=== PATIENT | male | born 1975 | race Caucasian/White ===

== ENCOUNTER 2016-06-20 07:12 | Inpatient (IN) | payer MEDICARE, OTHER ==
[2016-06-12 11:03] LABS: BASOPHILS 0.2 %; BASOPHILS ABSOLUTE 0.01 10/3/uL (0.0-0.16); EOSINOPHILS 3.2 %; EOSINOPHILS ABSOLUTE 0.18 10/3/uL (0.0-0.53); HEMATOCRIT 40.8 % (40.0-51.0); HEMOGLOBIN 14.2 g/dL (13.6-17.8); LYMPHOCYTES 31.7 %; LYMPHOCYTES ABSOLUTE 1.79 10/3/uL (0.67-4.30); MEAN CORPUS HGB CONC 34.8 g/dL (32.0-36.0); MEAN CORPUSCULAR HEMOGLOB 30.1 pg (26.0-34.0); MEAN CORPUSCULAR VOLUME 86.6 fL (80-100); MEAN PLATELET VOLUME 10.7 fL (9.2-13.0); MONOCYTES 12.2 %; MONOCYTES ABSOLUTE 0.69 10/3/uL (0.21-1.20); NEUTROPHILS 52.7 %; NEUTROPHILS ABSOLUTE 2.97 10/3/uL (2.02-8.40); PLATELET COUNT 212 10/3/uL (150-400); RED CELL COUNT 4.71 10/6/uL (4.7-6.1); WHITE BLOOD CELLS 5.6 10/3/uL (4.5-10.5)
[2016-06-12 11:04] LABS: MANUAL DIFF NO %
[2016-06-12 11:15] LABS: INTERNATIONAL NORMAL RATI 1.2 UNITS (-)
[2016-06-12 11:17] LABS: % IRON SAT 30 % (20-50); A/G RATIO 1.1 (0.7-1.9); ALBUMIN 3.7 G/DL (3.5-5.0); ALKALINE PHOSPHATASE 98 U/L (45-117); CALCIUM, SERUM 8.5 MG/DL (8.5-10.4); CHLORIDE, SERUM 106 MMOL/L (96-112); CO2 (CARBON DIOXIDE) 23 MMOL/L (24-34); CREATININE 1.25 MG/DL (0.70-1.30); GFR AFRICAN AMERICAN 82 ML/MIN (>=60); GFR NON AFRICAN AMERICAN 71 ML/MIN (>=60); GLOBULIN 3.3 G/DL (2.5-4.1); GLUCOSE, SERUM 120 MG/DL (60-99); IRON BINDING CAPACITY 308 MCG/DL (250-450); IRON, SERUM 93 MCG/DL (35-150); POTASSIUM, SERUM 3.4 MMOL/L (3.5-5.3); SGOT(AST) 17 U/L (5-40); SGPT(ALT) 21 U/L (5-65); SODIUM, SERUM 140 MMOL/L (135-148); TOTAL BILIRUBIN 0.5 MG/DL (0-1.2)
[2016-06-12 11:18] LABS: BUN (BLOOD UREA NITROGEN) 10 MG/DL (6-23)
[2016-06-12 11:32] LABS: ASCORBIC ACID (UR NOT ORDER) NEG (NEG); BILIRUBIN, URINE NEGATIVE (NEG); KETONE, URINE NEGATIVE (NEG); LEUKOCYTE ESTERASE(NOT OR NEG (NEG); WBC (NOT ORDERED) (RFLEX) 1 (0-5)
--- NOTE | ~2016-06-20 | OP ---
Record Of Operation [facility] [address] [place]. [address] NAME: MORGAN SMART : 73 STATUS : ADM IN PAT#: [id number] AGE: 41 ADM/REG DATE : 06/20/16 MR#: [id number] REPORT SERV DATE: 06/29/16 DICTATED BY: MORGAN LOPEZ DATE: 06/28/16 REPORT STATUS : Draft TRANSCRIBED BY: MODL DATE: 06/28/16 DATE OF PROCEDURE: 06/28/2016 PREOPERATIVE DIAGNOSES: 1. Acute mitral valve insufficiency, status post recent repair. 2. Flail anterior leaflet mitral valve. 3. Pulmonary hypertension. 4. Status post recent aortic root replacement (Bentall procedure) and mitral valve repair. 5. History of cerebral palsy. 6. Seizure disorder. 7. Obesity. 8. Hyperlipidemia. POSTOPERATIVE DIAGNOSES: 1. Acute mitral valve insufficiency, status post recent repair. 2. Flail anterior leaflet mitral valve. 3. Pulmonary hypertension. 4. Status post recent aortic root replacement (Bentall procedure) and mitral valve repair. 5. History of cerebral palsy. 6. Seizure disorder. 7. Obesity. 8. Hyperlipidemia. PROCEDURES PERFORMED: 1. Urgent mitral valve replacement using 31-mm pericardial valve with chordal-sparing technique. 2. Transesophageal echocardiography. SURGEON: Morgan Lopez M.D. ASSET COORDINATOR: Trevor Ratliff and Maribell Valladares. ANESTHESIA: General, Dr. Mckeon. COATING AND BAKING OPERATOR: Sai Charles M.D., [facility], [facility]. INDICATIONS: This is a 41-year-old gentleman with developmental delay. He has a seizure disorder and cerebral palsy. Has a known history of bicuspid aortic valve and dilated ascending aorta, and had been followed by Dr. Leach for these problems. He has developed worsening chest discomfort and dyspnea with exertion. Echocardiography demonstrated worsening mitral valve insufficiency along with aortic root insufficiency and stenosis. He underwent cardiac catheterization, and on 06/20/2016, underwent repair of the ascending aortic aneurysm and replacement of the aortic valve using a Bentall procedure with a pericardial valve prosthesis and Dacron graft. In addition, at the same setting, the mitral valve was repaired. This was a redundant mitral valve with ruptured A2 chord and we performed chordal transfer from the P2 primary chord of the leaflet onto the A2 cusp. At Record Of Operation [facility] [address] [place]. [address] NAME: MORGAN SMART : 73 STATUS : ADM IN PAT#: [id number] AGE: 41 ADM/REG DATE : 06/20/16 MR#: [id number] REPORT SERV DATE: 06/29/16 DICTATED BY: MORGAN LOPEZ DATE: 06/28/16 REPORT STATUS : Draft TRANSCRIBED BY: MODL DATE: 06/28/16 the conclusion of that the operation, there was no mitral valve insufficiency, although the mitral valve was redundant. Overall, the patient did relatively well postoperatively and was being readied for discharge. Routine postoperative echocardiography was performed yesterday and this demonstrated significant eccentric jet of mitral insufficiency and possible disruption of the repair of the mitral valve. The patient underwent a transesophageal echocardiogram this morning, which confirmed that the anterior leaflet of the mitral valve was now flail and there was severe eccentric jet of MR. Ventricular function was preserved. Aortic valve prosthesis appeared to be functioning normally. I talked with the family about possible reoperative repair or replacement of the mitral valve. I felt that replacement was most likely and the family was agreed that the mitral valve should be replaced. We again went over the operation risks and after discussion, they wished to proceed. FINDINGS AT OPERATION: 1. Cross-clamp 95 minutes. Total pump time 126 minutes. Retirement solution was utilized for cardioplegia. 2. The mitral valve had a flail anterior leaflet with the A2 cusp that had been repaired a week ago, now disrupted and flail. The evidence of chordal transfer had torn off and the suture in the anterior leaflet was in place. However, the chord and portion of the free edge of the P2 cusp of the posterior leaflet was no longer attached. Anterior leaflet remained very redundant. 3. I was concerned that attempt at further repair would not be successful and given the fact that the patient recently had the aortic root replacement, I could no longer visualize the anterolateral or posteromedial papillary muscles for resuspending the valve. Therefore, I felt that the valve should be replaced. We implanted a 31-mm pericardial valve (Magna Ease). Fourteen cor-knots were used to secure the valve in place. 4. We preserved the P1, P2, and most of the P3 leaflet and chords with replacement. The A2 leaflet was already free and these chords had been resected at previous operation and we resected the remaining portion of A1 chords and the entire anterior leaflet. 5. FLORENTIN at the end of the operation demonstrated good ventricular function. The mitral valve prosthesis was in a good position without perivalvular leak. The aortic valve appeared to be functioning well without insufficiency. PATHOLOGIC SPECIMENS: Include portion of the anterior leaflet and small portion of the posterior leaflet of the mitral valve. DESCRIPTION OF PROCEDURE: The patient was brought to the operating suite, where general anesthesia was induced. Airway was secured with an endotracheal tube. Lines were secured by Anesthesia. Velez catheter was placed. FLORENTIN probe was placed by Dr. Mckeon and examination was carried out as discussed above. Right axillary artery cannulation was performed first. The right infraclavicular region was anesthetized with Marcaine. Then, a 6-cm incision was performed along the lateral one third of the clavicle and 1 cm below it. This was carried through the subcutaneous tissue and chest wall musculature. The axillary vein was identified and this was preserved. Just Record Of Operation [address] [address] NAME: MORGAN SMART : 73 STATUS : ADM IN [facility]#: [id number] AGE: 41 ADM/REG DATE : 06/20/16 MR#: [id number] REPORT SERV DATE: 06/29/16 DICTATED BY: MORGAN LOPEZ DATE: 06/28/16 REPORT STATUS : Draft TRANSCRIBED BY: HORACE DATE: 06/28/16 behind this was the axillary artery. The axillary artery was then dissected for several centimeters. Heparin was administered by Anesthesia. Vascular clamps were placed on the proximal and distal axillary artery. Arteriotomy was made and then a #8 mm Gelweave Dacron graft was anastomosed to this vessel in an end-to-side fashion with running suture of 6-0 Prolene. Following completion anastomosis, the distal clamp on the axillary artery was removed, the graft de-aired, and the proximal clamp was removed. The 8-mm graft was then connected to the arterial line of the cardiopulmonary bypass pump and secured to the chest wall. Next, the previously made sternal incision was reopened and the sutures were removed. The sternal wires were likewise removed. Then, retractor was placed and the chest irrigated. There was a large pericardial effusion and this was evacuated. Heparin was administered by Anesthesia for cardiopulmonary bypass. Pursestring suture was placed in the right atrial appendage. Cannulation with a dual-stage venous cannula was then carried out. When all was in readiness, the patient was placed on cardiopulmonary bypass. Then, the aorta was crossclamped. Initial and only dose of cold crystalloid cardioplegia solution given, 2 L of Retirement solution were given in antegrade fashion. Following this first dose of cardioplegia, the interatrial groove of Chloe was reopened from his previous dissection and the sutures repairing the left atriotomy were removed. Dionicio retractor apparatus was assembled and positioned allowing good visualization of the mitral valve. We then examined the mitral valve and it was obvious that the chordal transfer repair of the mitral valve was no longer intact. The free P2 chords and free edge of the leaflet were not connected any longer to the A2 leaflet of the mitral valve. The anterior leaflet of the mitral valve was markedly abnormal and very myxomatous and redundant. I could no longer see the anterolateral or posteromedial papillary muscles to attach NeoChords to these areas and then to use these to reconstruct the chordae to the anterior leaflet. I felt that repair of the mitral valve would probably not be successful in this case. Therefore, it was decided to replace the valve. The cor-knot securing the annuloplasty ring system in place were removed and during their removal, we placed the horizontal mattress sutures of 2-0 Tycron, which were pledgeted through the annulus of the mitral valve with pledgets on the ventricular side. Then, with the annuloplasty ring out and the sutures in place, the left ventricle was irrigated copiously. We then excised the anterior leaflet of the mitral valve and the chordal attachments. The posterior leaflet of the mitral valve was preserved, although we did remove a section of the P2 cusp, where the previous chordal transfer had been performed. This foreign material of Prolene was likewise removed. We then irrigated the left ventricle copiously with saline to remove any particulate matter. The valve was sized and a 31-mm pericardial valve (Magna Ease) was selected. The sutures were then passed through the sewing cuff of the prosthetic valve. This was put into position and the sutures individually secured and divided using a cor-knot device. A total of 14 cor knots were placed. Iced saline injection through the orifice of the mitral valve demonstrated no insufficiency or perivalvular leak. Warming was begun. The retractor apparatus was then assembled and an Record Of Operation [facility] [id number] [place]. [address] NAME: MORGAN SMART : 73 STATUS : ADM IN PAT#: [id number] AGE: 41 ADM/REG DATE : 06/20/16 MR#: [id number] REPORT SERV DATE: 06/29/16 DICTATED BY: MORGAN LOPEZ DATE: 06/28/16 REPORT STATUS : Draft TRANSCRIBED BY: HORACE DATE: 06/28/16 LV vent was placed through the right superior pulmonary vein and directed across the mitral valve into the left ventricle. This was secured. The left arteriotomy was then closed in a two-layer fashion with running pledgeted suture of 4-0 prolene. The patient was placed in Trendelenburg and the left ventricle and ascending aorta were deaired. With flows reduced on pump, the aortic cross-clamp was likewise removed. Low-dose inotropic agents were started. The heart was allowed to rest on cardiopulmonary bypass. Ventilations were begun. Pacing was performed for a short period of time and then the patient resumed a normal sinus rhythm. When the heart demonstrated good contractility, it was allowed to fill and eject. Deairing was monitored with FLORENTIN. When deairing was completed, the LV vent was removed and these pursestring sutures were tied. The ascending aortic vent was likewise removed and these pursestring sutures were tied and reinforced. The patient was weaned from cardiopulmonary bypass with inotropic support. The venous cannula was removed and these pursestring sutures tied. FLORENTIN examination demonstrated good ventricular function. The aortic prosthesis appeared to be functioning normally. The mitral valve prosthesis was functioning well without perivalvular leak and no significant mitral insufficiency. Protamine was administered by Anesthesia and following a period of hemodynamic stability, the 8-mm Dacron graft on the right axillary artery was ligated and divided using with thoracoscopic stapler and the fitzgerald vascular load. Then, the chest was irrigated copiously with saline along with the axillary artery cut down site. Meticulous hemostasis was obtained. It should be noted the ventricular and atrial pacing wires were placed earlier. Once hemostasis was assured, the pericardium was draped over the anterior surface of heart and tacked into position. Chest tube was placed in the left pleural cavity and two chest tubes placed in the mediastinal space and these were connected to Pleur-evac. When hemostasis was assured, the sternum was reapproximated with eight sternal wires. The clavipectoral fascia and linea alba were closed with #1 Stratafix as was subcutaneous tissue. The skin was closed in subcuticular fashion. The patient tolerated the procedure well. There were no complications. Sponge and needle counts were correct. DISPOSITION: The patient was left intubated and sedated, and transported to the intensive care unit in stable condition. SYD/HORACE Morgan Lopez M.D. Record Of [address] [address] NAME: MORGAN SMART : 73 STATUS : ADM IN [facility]#: [id number] AGE: 41 ADM/REG DATE : 06/20/16 MR#: [id number] REPORT SERV DATE: 06/29/16 DICTATED BY: MORGAN LOPEZ DATE: 06/28/16 REPORT STATUS : Draft TRANSCRIBED BY: HORACE DATE: 06/28/16 / [id number] CC: Cadence Swann M.D., D.A.B.S.M Sai Charles III, M.D., [facility], [facility]
--- NOTE | ~2016-06-20 | OP ---
Record Of Operation [facility] [address] [place]. [address] NAME: MORGAN SMART : 73 STATUS : ADM IN PAT#: [id number] AGE: 41 ADM/REG DATE : 06/20/16 MR#: [id number] REPORT SERV DATE: 06/21/16 DICTATED BY: MORGAN LOPEZ DATE: 06/20/16 REPORT STATUS : Draft TRANSCRIBED BY: MODL DATE: 06/20/16 DATE OF PROCEDURE: 06/20/2016 PREOPERATIVE DIAGNOSES: 1. Bicuspid aortic valve with insufficiency. 2. Aortic root aneurysm. 3. 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 4. Pulmonary hypertension. 5. History of cerebral palsy. 6. History of seizure disorder. 7. Hyperlipidemia. 8. Obesity. POSTOPERATIVE DIAGNOSES: 1. Bicuspid aortic valve with insufficiency. 2. Aortic root aneurysm. 3. 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 4. Pulmonary hypertension. 5. History of cerebral palsy. 6. History of seizure disorder. 7. Hyperlipidemia. 8. Obesity. PROCEDURE PERFORMED: 1. Aortic root replacement using a composite graft of a 29 mm pericardial valve (Trifecta) and 32 mm Valsalva Dacron graft with reimplantation of coronaries (Bentall procedure). 2. Mitral valvuloplasty with chordal transfer and annuloplasty ring system (30 mm, Physio II). 3. Transesophageal echocardiography. SURGEON: Morgan Lopez M.D. ASSISTANTS: Jorge Zimmerman and Trevor Ratliff. ANESTHESIA: General with Dr. Goodman. AUTOMATION SOFTWARE ENGINEER: Sai Charles M.D. PRIMARY CARE: Francesco Pulido M.D. INDICATIONS: Mr. Smart is a 41-year-old gentleman from [place], [place]. He has a history of seizure disorder and cerebral palsy from . He also has a history of bicuspid aortic valve and dilated ascending aorta. He had been followed by Dr. Charles for some time for this problem. He is having episodes of chest discomfort and increasing episodes of dyspnea with exertion. Recently, echocardiography demonstrated worsening of his aortic valve insufficiency and mitral valve insufficiency. He underwent a cardiac catheterization which Record Of Operation [facility] [address] [place]. [address] NAME: MORGAN SMART : 73 STATUS : ADM IN PAT#: [id number] AGE: 41 ADM/REG DATE : 06/20/16 MR#: [id number] REPORT SERV DATE: 06/21/16 DICTATED BY: MORGAN LOPEZ DATE: 06/20/16 REPORT STATUS : Draft TRANSCRIBED BY: HORACE DATE: 06/20/16 demonstrated no surgically significant coronary disease. The aortic root was measured at greater than 5 cm across. There is also moderate aortic insufficiency noted. He had mitral valve prolapse with an eccentric jet of mitral valve insufficiency that was severe. We were asked to see the patient for possible aortic valve replacement with root replacement and mitral valve repair or replacement. Pulmonary artery hypertension was noted with a PA pressure of 80/33 mmHg documented on catheterization. There is no history of tricuspid valve insufficiency. We saw the patient in our office and discussed the operation with him and his family. After lengthy discussion of the operations, indication, risks, they wished to proceed. We discussed valve selection type. Because of his seizure history, a tissue valve was selected. FINDINGS AT OPERATION: 1. Cross-clamp time of 185 minutes, total pump time 234 minutes. 2. The aortic valve was a bicuspid valve with fusion of the right and left coronary cusps. There was a rudimentary commissure between the right and left leaflets. There was a sinus of Valsalva and root aneurysm in the area of the noncoronary cusp that had a dilated sinus Valsalva greater than 2 cm. The measured diameter of the aortic root was in excess of 5 cm. The coronary anatomy was relatively normal. 3. Aortic root was replaced using a composite graft of a 29 mm Trifecta pericardial valve. This was secured in place with 21 Cor-Knots. 4. In addition, the prosthetic valve was sewn into a 32 mm Valsalva Dacron graft. Coronaries were reimplanted into the sinus of Valsalva On the graft. 5. We replaced the ascending aorta using the same Dacron graft up to the mid level of the ascending aorta where the size of the aorta tapered back down to 3.2 cm in diameter. 6. The mitral valve had a very large anterior leaflet. There was a flail of P2 with ruptured chordae. We performed a valvuloplasty with chordal transfer from the primary P2 cords over onto the A2 portion of the anterior leaflet. This resulted in good coaptation of the anterior and posterior leaflet, although the anterior leaflet size was fairly impressive. 7. Mitral valvuloplasty was performed using a 30 mm Physio II annuloplasty ring system. This was secured in placed with 18 Cor-Knots. 8. We did ligate and amputate the left atrial appendage. 9. FLORENTIN demonstrated mildly reduced ventricular function at the end of the operation with no residual mitral insufficiency and aortic prosthesis was functioning very well. PATHOLOGIC SPECIMENS: Include the left atrial appendage, aortic valve leaflets along with portions of the aortic root and ascending aorta and also the ruptured cords to the A2 leaflet of the mitral valve. DESCRIPTION OF PROCEDURE: The patient was brought to the operating suite where general anesthesia was induced and airway secured with an endotracheal tube. Lines secured by Anesthesia. Velez catheter was placed. The patient's chest, abdomen, groin, and legs were prepped with Hibiclens and ChloraPrep and draped with Ioban sterile sheets. FLORENTIN probe was placed by Dr. Goodman and examination carried out in my attendance. The anterior leaflet of the mitral valve was large. There was a large flail with eccentric jet noted. The ascending aortic root was also enlarged greater than 0.5 to 5 cm with moderate aortic valve insufficiency and a bicuspid aortic valve. No clot in the left atrial appendage was noted Record Of Operation [address] [address] NAME: BERRYMORGAN ELIUD : 73 STATUS : ADM IN [facility]#: [id number] AGE: 41 ADM/REG DATE : 06/20/16 MR#: [id number] REPORT SERV DATE: 06/21/16 DICTATED BY: MORGAN LOPEZ DATE: 06/20/16 REPORT STATUS : Draft TRANSCRIBED BY: MODJuana DATE: 06/20/16 and no significant tricuspid valve insufficiency was noted. Midline sternal incision was made and the sternum opened with a saw. The Dionicio retractor was placed and the pericardium opened from the innominate vein. The diaphragm was T'd and tacked to sides of the chest wall. Heparin was administered by Anesthesia and lines passed from the field for cardiopulmonary bypass. Cannulation pursestring sutures were placed and cannulation was carried out in routine manner. When all was in readiness, the patient was placed on cardiopulmonary bypass. We then dissected the ascending aorta. The measurement of the ascending aorta from midportion of the ascending aorta about 3 cm proximal to the takeoff of the innominate artery was about 3.2 cm where it enlarged down into the aortic root. This was aneurysmal. The interatrial groove of [place] was then dissected. The aorta was crossclamped. Initial and only dose of cold Custodiol crystalloid solution was administered antegrade for a total of 500 mL. Then, a small left atriotomy was made to decompress the left atrium and small aortotomy was made to allow access to the coronary ostia of the right and left main. We then infused remaining 1.5 L of Custodiol solution directly into the coronary ostia and right and left main artery dividing this amount equally between the 2 structures. Following the first dose of cardioplegia, the heart was gently rotated toward the surgeon. The left atrial appendage was grasped. It was ligated and amputated at its base using thoracoscopic stapler and a 60 mm purple staple load. Then, the mitral valve was examined. Left atriotomy incision was enlarged and the Dionicio retractor apparatus was assembled and positioned allowing good visualization of the mitral valve. The mitral valve was examined. The posterior leaflet all appeared relatively normal. The anterior leaflet was markedly enlarged. There was flail A2 cusp of the anterior leaflet with ruptured chordae tendineae. These ruptured chords were resected and sent for pathologic examination. I felt that either Neochord reconstruction of this leaflet or chordal transfer is possible. We elected for chordal transfer of the P2 cusp of the posterior leaflet. A small portion of the free edge leaflet of the posterior cuff with primary chords in this area were resected. This defect was then repaired with horizontal mattress suture of 5-0 Prolene. Then, the chords were turned and sutured to the anterior leaflet of the mitral valve with horizontal mattress suture of 5-0 Prolene. Then, saline was injected into the orifice of the mitral valve. The ascending aorta that had been opened earlier was clamped proximal to this aortotomy incision. This allowed us to pressurize the left ventricle and there appeared to be good coaptation of the anterior leaflet and the posterior leaflet albeit with a very large anterior leaflet that was redundant. I felt that the annuloplasty ring should be implanted to support and reinforce this repair. The valve was then sized and a 30 mm Physio II annuloplasty ring system was selected. Interrupted nonpledgeted sutures of 2-0 Tycron were placed in a horizontal mattress fashion about the mitral valve annulus. Sutures were passed through the sewing cuff of the annuloplasty ring. This was lowered into position. Each sutures were individually secured and divided using a Cor-Knot device. A total of 18 Cor-Knots were placed. Saline injection again through the orifice of the mitral valve demonstrated no insufficiency with a very pressurized ventricle. Record Of Operation [facility] [address] [place]. [address] NAME: BERRYMORGAN Thomas ELIUD : 73 STATUS : ADM IN PAT#: [id number] AGE: 41 ADM/REG DATE : 06/20/16 MR#: [id number] REPORT SERV DATE: 06/21/16 DICTATED BY: MORGAN LOPEZ DATE: 06/20/16 REPORT STATUS : Draft TRANSCRIBED BY: HORACE DATE: 06/20/16 At this point, an LV vent was then directed through the right superior pulmonary vein and across the mitral valve into the left ventricle. The left atriotomy was then closed in a two-layer fashion with running pledgeted suture of 4-0 Prolene. We then turned our attention towards the aortic valve and aortic root aneurysm. The ascending aorta was transected where it had been previously just opened and this was just at the sinotubular junction. The aortic valve was inspected and it appeared to be a bicuspid valve with fusion of the right and left coronary cusps. Coronary anatomy was normal. There was a very dilated sinus of Valsalva especially in the region of the noncoronary cusp. It measured greater than 2 cm in height. The diameter of the aortic root at the sinus of Valsalva appeared to 4.8-5 cm. We elected to replace the valve and reconstruct the root. The valve was sized and a 29 mm pericardial prosthesis was selected (Trifecta). We then excised the leaflets of the aortic valve. The valve itself was not heavily calcified. We then excised the coronary sinuses of the noncoronary cusp and excised the coronary buttons and sinuses of the right and left coronary cusps. During this time, a 29 mm Trifecta pericardial valve was placed into the 32 mm Valsalva Dacron graft and sewn into place with a running suture of 5-0 Prolene. Interrupted pledgeted sutures of 2-0 Tycron was placed circumferentially in a horizontal mattress fashion about the aortic valve annulus. The sutures were then passed through the composite graft and valve. This was lowered into position and each sutures individually secured and divided using a Cor-Knot device. A total of 21 Cor-Knots were utilized. The valve appeared to be well seated. The right and left main coronary button laid up top of the Valsalva portion of the graft very nicely. These were then marked. Next, using cautery, a hole was made in the left sinus of Valsalva of the graft. Then, the left main coronary button was anastomosed to this hole in the Dacron graft with a running suture of 6-0 Prolene. This was to reconstruct the coronary sinus with left main coronary ostia. In a similar fashion, the right main coronary ostial button was anastomosed to a hole made in the Valsalva graft with a running suture of 6-0 Prolene. Both right and left main coronary ostia appeared to be very patent and without tension. Warming was begun. We then transected a portion of the ascending aorta above the sinotubular junction to where the aorta tapered down to less than 3.5 cm in diameter. The distal end of the Valsalva graft was then anastomosed to the ascending aorta with a running suture of 4-0 Prolene. Near completion of this anastomosis, the heart and ascending aortic graft were de-aired. Once the anastomosis was completed, the patient was placed in Trendelenburg. Once de-airing was accomplished, the aortic cross-clamp was removed. We then spent a fair amount of time resting on bypass. Ventricular and atrial pacing wires were placed. Small leaks in the distal suture line were repaired with 4 Prolene sutures. The heart resumed a sinus rhythm and had one episode of ventricular fibrillation, which was cardioverted using 10 joules of energy and the internal paddles. The heart was initially paced, but this was later discontinued as it resumed a normal sinus rhythm. As the heart contractility improved, ventilation was begun. Inotropic agents were started. When the heart demonstrated good contractility, it was allowed to fill and eject. De-airing was monitored with FLORENTIN. When deairing was completed, the LV vent was removed and these Record Of Operation [address] [place]. [address] NAME: MORGAN SMART : 73 STATUS : ADM IN PAT#: [id number] AGE: 41 ADM/REG DATE : 06/20/16 MR#: [id number] REPORT SERV DATE: 06/21/16 DICTATED BY: MORGAN LOPEZ DATE: 06/20/16 REPORT STATUS : Draft TRANSCRIBED BY: HORACE DATE: 06/20/16 pursestring sutures tied. The ascending aortic root vent was removed and these pursestring sutures tied and reinforced. The patient was then weaned from cardiopulmonary bypass with inotropic support. The venous cannula was removed and these pursestring suture secured and later tied. FLORENTIN examination demonstrated a good functioning ventricle. The aortic valve prosthesis appeared to be well seated without perivalvular leak. The mitral valve was definitely not normal. The anterior leaflet was redundant, however, there was no prolapse and there was no residual mitral valve insufficiency. There was no evidence of outflow tract obstruction or LEONARDO with the mitral valvuloplasty. Protamine was then administered by Anesthesia and following a period of hemodynamic stability, the aortic cannula was removed and these pursestring sutures tied and reinforced. The patient continued do well and chest irrigated copiously with saline. Meticulous hemostasis was obtained. Hemasorb was placed along the cut edge of the sternum. Once hemostasis was assured, the pericardium was draped over the anterior surface of the heart and tacked into position. Chest tubes were placed and the sternum reapproximated with 8 sternal wires. The clavipectoral fascia and linea alba closed with 0 PDS. Subcutaneous tissue was closed and the skin closed in a subcuticular fashion. The patient tolerated the procedure well and there were no complications. Sponge and needle counts were correct. DISPOSITION: The patient was intubated, sedated, and taken to the intensive care unit in a stable intubated condition with milrinone and dobutamine. SYD/HORACE Morgan Lopez M.D. / [id number]
--- NOTE | ~2016-06-20 | DS ---
Discharge Summary [facility] [address] [place]. [address] NAME: MORGAN SMART : 73 STATUS : DIS IN PAT#: [id number] AGE: 41 ADM/REG DATE : 06/20/16 MR#: [id number] REPORT SERV DATE: 07/11/16 DICTATED BY: MORGAN LOPEZ DATE: 07/11/16 REPORT STATUS : Draft TRANSCRIBED BY: MODJuana DATE: 07/11/16 Data Collection from hospitalization DISCHARGE DIAGNOSES: 1. Ascending aortic aneurysm. 2. Bicuspid aortic valve with insufficiency. 3. Cerebral palsy. 4. Seizure disorder. 5. Hyperlipidemia. 6. Obesity. 7. Insomnia. 8. Hyperlipoproteinemia. 9. Obesity. CONSULTATIONS: Dr. Sai Charles. PROCEDURES: 1. Aortic root replacement using a composite graft of a 29 mm pericardial valve (Trifecta) and 32 mm Valsalva Dacron graft with reimplantation of coronaries (Bentall procedure). Mitral valvuloplasty with chordal transfer and annuloplasty ring system (30 mm Physio II). Transesophageal echocardiography, 06/20/2016. 2. Urgent mitral valve replacement using a 31 mm pericardial valve with chordal sparing technique. Transesophageal echocardiography, 06/28/2016. PATHOLOGY: Aortic valve replacement-fibrous cartilage valve with myxoid changes. Aortic root excision-portions of aortic wall, no evidence of aortitis. Ruptured chordae of mitral valve excision-portions of valve and chordae with myxoid changes and fibrosis. Left atrial appendage-within normal limits. Mitral valve leaflets-myxoid changes, prosthetic mitral valve. DISCHARGE MEDICATIONS: Aspirin 81 mg daily, Klonopin 1 mg at bedtime, Keppra 1500 mg at bedtime and 1000 mg every morning, Claritin 10 mg daily, phenobarbital 64.8 mg at bedtime, and Zocor 40 mg at bedtime. CONDITION AT DISCHARGE: Stable. DISPOSITION: The patient was discharged home on a regular diet with activities as instructed. He would follow up with Pb León on 07/13/2016, and with Dr. Sai Charles on 07/21/2016. He would follow up with Dr. Francesco Pulido on 07/14/2016. HOSPITAL COURSE: This is a 41-year-old man, who has a history of a seizure disorder and cerebral palsy. He also has a history of bicuspid aortic valve and a dilated ascending aorta. Dr. Charles had been following the patient for chest discomfort and dyspnea with exertion. Because of continued dyspnea and chest discomfort, the patient was followed and recent echocardiography had demonstrated worsening of his mitral valve insufficiency. He recently underwent a cardiac catheterization which demonstrated no surgically significant coronary artery disease. The aortic root was measured at greater than 5.5 cm across, and there was [id number] aortic insufficiency. He has mitral valve prolapse within an Discharge Summary [address] [address] NAME: MORGAN SMART : 73 STATUS : DIS IN PAT#: [id number] AGE: 41 ADM/REG DATE : 06/20/16 MR#: [id number] REPORT SERV DATE: 07/11/16 DICTATED BY: MORGAN LOPEZ DATE: 07/11/16 REPORT STATUS : Draft TRANSCRIBED BY: HORACE DATE: 07/11/16 eccentric severe jet of mitral regurgitation. Treatment options were discussed and it was elected to proceed with surgical intervention. He was admitted at this time for further evaluation and treatment. Upon admission, he was taken to the operating room, where he underwent the above-mentioned procedure. He tolerated this well, and there were no complications. On postop day #1, he was up sitting in a chair. His lungs were clear. He had no edema. His incisions looked okay. Velez catheter was in place. Chest x-ray showed no pneumothorax. We were going to try and decrease inotropic/pressor support. He was seen by Dr. Sai Charles. The patient had been extubated. He did have some chest pains. He had no palpitations or dyspnea on O2 and at rest, he was in a sinus rhythm. Metoprolol was discontinued. On 06/22/2016, chest x ray showed increased left base atelectasis. He had no edema. He had mild dyspnea and chest pain, but no palpitations. He remained in a sinus rhythm. Diuresis was being provided. The next day, he had decreased breath sounds in his lung bases. Chest x-ray showed improving aeration with no pneumothorax. He had 1+ lower extremity edema. I encouraged him to mobilize. On 06/24/2016, he was in a normal sinus rhythm. His INR level was 1.2. Over the next couple of days, he had no dyspnea or palpitations. He has mild chest discomfort. He remained in a sinus rhythm. An echocardiogram was performed. He was evaluated by Occupational Therapy. He had trace ankle edema. His incisions looked okay. On 06/27/2016, his lungs remained clear. He had trace edema. An esophageal echocardiogram was going to be performed. The next day, a transesophageal echocardiogram was performed by Dr. Ally Burnett, moderately decreased left ventricular systolic function. There was a normally functioning aortic valve prosthesis. There was prior mitral valve repair with annuloplasty ring with severe bileaflet mitral valve prolapse. Thickened and redundant anterior mitral valve leaflet with associated eccentric severe posteriorly directed mitral regurgitation and right upper vein pulmonary flow bursal. Echodensity on the anterior mitral valve leaflet was likely consistent with ruptured cord. There was circumferential pericardial effusion. The patient had been doing relatively well postoperatively. The routine postoperative echocardiography had been performed and demonstrated significant eccentric jet of mitral insufficiency and possible disruption of the repair of the mitral valve. Transesophageal echocardiogram confirmed that the anterior leaflet of the mitral valve was now flail, and there was severe eccentric jet of mitral regurgitation. Ventricular function was preserved. Treatment options were discussed and it was elected to proceed with surgical intervention. He was taken to the operating room, where he underwent the above-mentioned procedure. He tolerated this well. There were no complications. On 06/29/2016, his lungs were clear. His abdomen was soft and nontender. His incisions looked okay. His arterial line was removed. The PA catheter was discontinued. Levophed was being weaned as tolerated. He was extubated. He remained in a sinus rhythm. Metoprolol was on hold. He was evaluated by Physical Therapy. The next day, he had no chest pain, palpitations, or dyspnea. He had 2+ pitting bilateral pedal edema. We encouraged deep coughing and incentive spirometry. Amiodarone was decreased. Over the next few days, he continued to progress. He had mild chest soreness. Discharge planning was performed. He was evaluated by Physical Therapy. On 07/03/2016, discharge instructions Discharge Summary [facility] [address] [place]. [address] NAME: MORGAN SMART : 73 STATUS : DIS IN PAT#: [id number] AGE: 41 ADM/REG DATE : 06/20/16 MR#: [id number] REPORT SERV DATE: 07/11/16 DICTATED BY: MORGAN LOPEZ DATE: 07/11/16 REPORT STATUS : Draft TRANSCRIBED BY: HORACE DATE: 07/11/16 were given. Due to his improved and stable condition, he was discharged home with the above stated instructions. Information collected by: Maria Elena Loyd I submit the above information as my discharge summary. ISABELLE/HORACE Morgan Lopez M.D. / [id number] CC: Cadence Swann M.D., D.A.B.S.M Sai Charles III, M.D., [facility], [facility]
--- NOTE | ~2016-06-20 | TEE ---
Transesophageal Echocardiogram [facility] [address] [place]. [address] NAME: MORGAN SMART : 73 STATUS : ADM IN PAT#: [id number] AGE: 41 ADM/REG DATE : 06/20/16 MR#: [id number] REPORT SERV DATE: 06/28/16 DICTATED BY: DATE: REPORT STATUS : Draft TRANSCRIBED BY: MODL DATE: 06/28/16 REASON FOR STUDY: Mitral valvular regurgitation status post repaired. Written informed consent obtained. Please see chart for documentation. PROCEDURE IN DETAIL: With the assistance of my Anesthesia colleagues, Mr. Smart was sedated for the procedure. The transesophageal probe was placed with one attempt without complications. 1. 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 There was no evidence of significant aortic valvular regurgitation. 2. The left ventricular systolic function appeared moderately decreased with a visually estimated ejection fraction of 40%. The left ventricle appeared mildly dilated. 3. The mitral valve anatomy was consistent with a prior mitral valve repair. The mitral valve leaflets are thickened with bileaflet severe prolapse, greatest in the anterior leaflet. There is echodensity on the anterior leaflet that prolapses into the left ventricle likely consistent with a ruptured cord. There is a severe eccentric posteriorly-directed mitral regurgitation via Doppler and color flow with evidence of right upper pulmonary vein flow reversal. 4. The tricuspid valve leaflets appeared to open normally. 5. The left atrium is dilated. The right atrium is dilated. 6. The right ventricle appeared mildly dilated with moderately decreased systolic function. 7. There is a circumferential pericardial effusion noted. CONCLUSION: 1. MODERATELY DECREASED LEFT VENTRICULAR SYSTOLIC FUNCTION WITH A VISUALLY ESTIMATED EJECTION FRACTION OF 40%. 2. DILATED LEFT-SIDED STRUCTURES. 3. DILATED RIGHT-SIDED STRUCTURES WITH MODERATELY DECREASED RIGHT VENTRICULAR SYSTOLIC FUNCTION. 4. NORMALLY FUNCTIONING AORTIC VALVE PROSTHESIS. 5. PRIOR MITRAL VALVE REPAIR WITH ANNULOPLASTY RING WITH SEVERE BILEAFLET MITRAL VALVE PROLAPSE, THICKENED, AND REDUNDANT ANTERIOR MITRAL VALVE LEAFLET WITH ASSOCIATED ECCENTRIC SEVERE POSTERIORLY-DIRECTED MITRAL REGURGITATION AND RIGHT UPPER VEIN PULMONARY FLOW REVERSAL. 6. ECHODENSITY ON THE ANTERIOR MITRAL VALVE LEAFLET LIKELY CONSISTENT WITH A RUPTURED CORD. 7. CIRCUMFERENTIAL PERICARDIAL EFFUSION. 8. THESE FINDINGS WERE DISCUSSED WITH BOTH DR. LOPEZ AND DR. CHARLES. [facility] Ally Burnett M.D. / [id number] Transesophageal Echocardiogram [address] [address] NAME: MORGAN SMART : 73 STATUS : ADM IN PAT#: [id number] AGE: 41 ADM/REG DATE : 06/20/16 MR#: [id number] REPORT SERV DATE: 06/28/16 DICTATED BY: DATE: REPORT STATUS : Draft TRANSCRIBED BY: MODL DATE: 06/28/16 CC: Morgan Lopez M.D. Francesco Pulido M.D., D.A.B.S.M Morgan Lopez M.D. Sai Charles III, M.D., [facility], [facility]
[~2016-06-20 07:12] MED LIST: CLARIT10 PO; KEPPRA1000 MG PO; KLONO1 PO; MELATONIN5 M1 PO; PHENOBARB64.8 MG PO; ZOCOR40 PO; [UNRECOGNIZED DRUG - OTHER] PO
[2016-06-20 18:08] LABS: CARBOXYHEMOGLOBIN 0.3 % (0-3); HCO3 (ACTUAL BICARBONATE) 20.2 MEQ/L (23-27); HEMOBLOGIN CONTENT 12.8 G/DL (14-18); INSTRUMENT SERIAL # 11843; METHEMOGLOBIN 0.8 % (0-3); MODE SIMV; O2 CONTENT 16.8 VOL% (18-24); OPERATOR ID 19104; PCO2 (CO2 TENSION) 42 MMHG (35-45); PO2 (O2 TENSION) 82 MMHG (79-93); SAMPLE Arterial; TIDAL VOLUME 700 ML
[2016-06-20 18:20] LABS: HEMOGLOBIN 12.2 g/dL (13.6-17.8)
[2016-06-20 18:21] LABS: HEMATOCRIT 34.5 % (40.0-51.0); PLATELET COUNT 122 10/3/uL (150-400)
[2016-06-20 18:28] LABS: INTERNATIONAL NORMAL RATI 1.7 UNITS (-)
[2016-06-20 18:29] LABS: PARTIAL THROMBO TIME 36.5 SEC (22.5-37.2)
[2016-06-20 18:30] LABS: PROTIME (NOT ORD) 19.8 SEC (12.0-14.5)
[2016-06-20 18:32] LABS: BUN (BLOOD UREA NITROGEN) 11 MG/DL (6-23); CHLORIDE, SERUM 115 MMOL/L (96-112); CO2 (CARBON DIOXIDE) 22 MMOL/L (24-34); GFR AFRICAN AMERICAN 86 ML/MIN (>=60); GFR NON AFRICAN AMERICAN 74 ML/MIN (>=60); GLUCOSE, SERUM 128 MG/DL (60-99)
[2016-06-20 18:33] LABS: CALCIUM, SERUM 6.8 MG/DL (8.5-10.4); POTASSIUM, SERUM 3.7 MMOL/L (3.5-5.3); SODIUM, SERUM 147 MMOL/L (135-148)
[2016-06-20 19:19] LABS: BE (BASE EXCESS) -5.1 MEQ/L (0 +/- 2.5); HCO3 (ACTUAL BICARBONATE) 19.5 MEQ/L (23-27); HEMOBLOGIN CONTENT 14.4 G/DL (14-18); INSTRUMENT SERIAL # 11843; METHEMOGLOBIN 0.8 % (0-3); MODE CMV; PCO2 (CO2 TENSION) 35 MMHG (35-45); PO2 (O2 TENSION) 152 MMHG (79-93); SAMPLE Arterial; TIDAL VOLUME 700 ML; pH 7.36 (7.37-7.43)
[2016-06-21 00:09] LABS: BE (BASE EXCESS) -2.2 MEQ/L (0 +/- 2.5); CARBOXYHEMOGLOBIN 0.2 % (0-3); DEVICE VM; HCO3 (ACTUAL BICARBONATE) 22.4 MEQ/L (23-27); HEMOBLOGIN CONTENT 13.1 G/DL (14-18); INSTRUMENT SERIAL # 11843; METHEMOGLOBIN 0.7 % (0-3); O2 CONTENT 17.2 VOL% (18-24); PCO2 (CO2 TENSION) 38 MMHG (35-45); PO2 (O2 TENSION) 75 MMHG (79-93); SAMPLE Arterial; pH 7.39 (7.37-7.43)
[2016-06-21 00:27] LABS: HEMATOCRIT 34.6 % (40.0-51.0); HEMOGLOBIN 12.3 g/dL (13.6-17.8)
[2016-06-21 00:41] LABS: BUN (BLOOD UREA NITROGEN) 14 MG/DL (6-23); CALCIUM, SERUM 7.6 MG/DL (8.5-10.4); CHLORIDE, SERUM 113 MMOL/L (96-112); CO2 (CARBON DIOXIDE) 25 MMOL/L (24-34); CREATININE 1.16 MG/DL (0.70-1.30); GFR AFRICAN AMERICAN 90 ML/MIN (>=60); GFR NON AFRICAN AMERICAN 77 ML/MIN (>=60); GLUCOSE, SERUM 108 MG/DL (60-99); POTASSIUM, SERUM 3.6 MMOL/L (3.5-5.3); SODIUM, SERUM 147 MMOL/L (135-148)
[2016-06-21 04:11] LABS: INTERNATIONAL NORMAL RATI 1.2 UNITS (-); PARTIAL THROMBO TIME 30.4 SEC (22.5-37.2)
[2016-06-21 04:13] LABS: PROTIME (NOT ORD) 14.7 SEC (12.0-14.5)
[2016-06-21 04:16] LABS: BASOPHILS 0 %; EOSINOPHILS 0 %; HEMATOCRIT 33.7 % (40.0-51.0); HEMOGLOBIN 11.9 g/dL (13.6-17.8); IMMATURE GRANULOCYTES 0.6 %; IMMATURE GRANULOCYTES ABSOLUTE 0.08 10/3/uL (0.0-0.11); LYMPHOCYTES 5.4 %; LYMPHOCYTES ABSOLUTE 0.72 10/3/uL (0.67-4.30); MEAN CORPUS HGB CONC 35.3 g/dL (32.0-36.0); MEAN CORPUSCULAR HEMOGLOB 30.3 pg (26.0-34.0); MEAN CORPUSCULAR VOLUME 85.8 fL (80-100); MEAN PLATELET VOLUME 10.7 fL (9.2-13.0); MONOCYTES 6.6 %; MONOCYTES ABSOLUTE 0.88 10/3/uL (0.21-1.20); NEUTROPHILS 87.4 %; NEUTROPHILS ABSOLUTE 11.74 10/3/uL (2.02-8.40); PLATELET COUNT 115 10/3/uL (150-400); RED CELL COUNT 3.93 10/6/uL (4.7-6.1)
[2016-06-21 04:17] LABS: MANUAL DIFF NO %; WHITE BLOOD CELLS 13.4 10/3/uL (4.5-10.5)
[2016-06-21 04:33] LABS: BUN (BLOOD UREA NITROGEN) 14 MG/DL (6-23); CALCIUM, SERUM 7.5 MG/DL (8.5-10.4); CHLORIDE, SERUM 111 MMOL/L (96-112); CO2 (CARBON DIOXIDE) 25 MMOL/L (24-34); CREATININE 1.08 MG/DL (0.70-1.30); GFR AFRICAN AMERICAN 98 ML/MIN (>=60); GFR NON AFRICAN AMERICAN 84 ML/MIN (>=60); POTASSIUM, SERUM 4.1 MMOL/L (3.5-5.3); SODIUM, SERUM 145 MMOL/L (135-148)
[2016-06-21 04:34] LABS: GLUCOSE, SERUM 147 MG/DL (60-99)
[2016-06-21 17:07] LABS: HEMATOCRIT 32.7 % (40.0-51.0); HEMOGLOBIN 11.6 g/dL (13.6-17.8)
[2016-06-22 04:03] LABS: BASOPHILS 0 %; EOSINOPHILS 0 %; HEMOGLOBIN 10.8 g/dL (13.6-17.8); IMMATURE GRANULOCYTES 0.3 %; IMMATURE GRANULOCYTES ABSOLUTE 0.05 10/3/uL (0.0-0.11); LYMPHOCYTES 11.2 %; LYMPHOCYTES ABSOLUTE 1.97 10/3/uL (0.67-4.30); MEAN CORPUS HGB CONC 33.8 g/dL (32.0-36.0); MEAN CORPUSCULAR HEMOGLOB 29.2 pg (26.0-34.0); MEAN CORPUSCULAR VOLUME 86.5 fL (80-100); MEAN PLATELET VOLUME 11.7 fL (9.2-13.0); MONOCYTES 15.1 %; MONOCYTES ABSOLUTE 2.67 10/3/uL (0.21-1.20); NEUTROPHILS 73.4 %; NEUTROPHILS ABSOLUTE 12.96 10/3/uL (2.02-8.40); PLATELET COUNT 103 10/3/uL (150-400); RBC DISTRIBUTION WIDTH 13.8 % (12.0-16.0); WHITE BLOOD CELLS 17.7 10/3/uL (4.5-10.5)
[2016-06-22 04:10] LABS: MANUAL DIFF NO %
[2016-06-22 04:14] LABS: CALCIUM, SERUM 7.7 MG/DL (8.5-10.4); CHLORIDE, SERUM 104 MMOL/L (96-112); CO2 (CARBON DIOXIDE) 24 MMOL/L (24-34); CREATININE 0.94 MG/DL (0.70-1.30); GFR AFRICAN AMERICAN 115 ML/MIN (>=60); GFR NON AFRICAN AMERICAN 100 ML/MIN (>=60); POTASSIUM, SERUM 4.3 MMOL/L (3.5-5.3)
[2016-06-22 04:16] LABS: BUN (BLOOD UREA NITROGEN) 18 MG/DL (6-23); GLUCOSE, SERUM 93 MG/DL (60-99); SODIUM, SERUM 136 MMOL/L (135-148)
[2016-06-22 04:30] LABS: BE (BASE EXCESS) -1.6 MEQ/L (0 +/- 2.5); CARBOXYHEMOGLOBIN 0.3 % (0-3); HCO3 (ACTUAL BICARBONATE) 21.6 MEQ/L (23-27); INSTRUMENT SERIAL # 11843; PCO2 (CO2 TENSION) 32 MMHG (35-45); PO2 (O2 TENSION) 74 MMHG (79-93); pH 7.45 (7.37-7.43)
[2016-06-22 04:31] LABS: DEVICE NC; HEMOBLOGIN CONTENT 12.1 G/DL (14-18); METHEMOGLOBIN 0.5 % (0-3); O2 CONTENT 15.9 VOL% (18-24); OPERATOR ID 13744; SAMPLE Arterial
[2016-06-23 05:06] LABS: ALLENS TEST Pos; BE (BASE EXCESS) -1.6 MEQ/L (0 +/- 2.5); CARBOXYHEMOGLOBIN 0.3 % (0-3); DEVICE NC; HCO3 (ACTUAL BICARBONATE) 21.3 MEQ/L (23-27); INSTRUMENT SERIAL # 35151; METHEMOGLOBIN 0.6 % (0-3); O2 CONTENT 14.8 VOL% (18-24); OPERATOR ID 35190; PCO2 (CO2 TENSION) 30 MMHG (35-45); PO2 (O2 TENSION) 88 MMHG (79-93); SAMPLE Arterial; pH 7.47 (7.37-7.43)
[2016-06-23 06:22] LABS: BASOPHILS 0.1 %; BASOPHILS ABSOLUTE 0.01 10/3/uL (0.0-0.16); EOSINOPHILS 0.3 %; EOSINOPHILS ABSOLUTE 0.05 10/3/uL (0.0-0.53); HEMATOCRIT 30.2 % (40.0-51.0); HEMOGLOBIN 10.4 g/dL (13.6-17.8); IMMATURE GRANULOCYTES 0.3 %; IMMATURE GRANULOCYTES ABSOLUTE 0.05 10/3/uL (0.0-0.11); LYMPHOCYTES 13.4 %; LYMPHOCYTES ABSOLUTE 2.23 10/3/uL (0.67-4.30); MEAN CORPUS HGB CONC 34.4 g/dL (32.0-36.0); MEAN CORPUSCULAR HEMOGLOB 30.4 pg (26.0-34.0); MEAN CORPUSCULAR VOLUME 88.3 fL (80-100); MEAN PLATELET VOLUME 11.8 fL (9.2-13.0); MONOCYTES 13.5 %; MONOCYTES ABSOLUTE 2.24 10/3/uL (0.21-1.20); NEUTROPHILS 72.4 %; NEUTROPHILS ABSOLUTE 12.02 10/3/uL (2.02-8.40); PLATELET COUNT 91 10/3/uL (150-400); RBC DISTRIBUTION WIDTH 13.4 % (12.0-16.0); RED CELL COUNT 3.42 10/6/uL (4.7-6.1); WHITE BLOOD CELLS 16.6 10/3/uL (4.5-10.5)
[2016-06-23 06:23] LABS: MANUAL DIFF NO %
[2016-06-23 06:29] LABS: CALCIUM, SERUM 7.7 MG/DL (8.5-10.4); CHLORIDE, SERUM 98 MMOL/L (96-112); CO2 (CARBON DIOXIDE) 25 MMOL/L (24-34); CREATININE 0.97 MG/DL (0.70-1.30); GFR AFRICAN AMERICAN 111 ML/MIN (>=60); GFR NON AFRICAN AMERICAN 96 ML/MIN (>=60); POTASSIUM, SERUM 4.2 MMOL/L (3.5-5.3); SODIUM, SERUM 132 MMOL/L (135-148)
[2016-06-23 06:30] LABS: BUN (BLOOD UREA NITROGEN) 24 MG/DL (6-23); GLUCOSE, SERUM 136 MG/DL (60-99)
[2016-06-24 06:28] LABS: BASOPHILS 0.1 %; BASOPHILS ABSOLUTE 0.01 10/3/uL (0.0-0.16); EOSINOPHILS 2.4 %; EOSINOPHILS ABSOLUTE 0.34 10/3/uL (0.0-0.53); HEMATOCRIT 29.3 % (40.0-51.0); HEMOGLOBIN 10.2 g/dL (13.6-17.8); IMMATURE GRANULOCYTES 0.3 %; IMMATURE GRANULOCYTES ABSOLUTE 0.04 10/3/uL (0.0-0.11); LYMPHOCYTES 13.3 %; MEAN CORPUS HGB CONC 34.8 g/dL (32.0-36.0); MEAN CORPUSCULAR HEMOGLOB 30.9 pg (26.0-34.0); MEAN CORPUSCULAR VOLUME 88.8 fL (80-100); MEAN PLATELET VOLUME 11.3 fL (9.2-13.0); MONOCYTES 12.9 %; MONOCYTES ABSOLUTE 1.84 10/3/uL (0.21-1.20); NEUTROPHILS ABSOLUTE 10.13 10/3/uL (2.02-8.40); RBC DISTRIBUTION WIDTH 13.2 % (12.0-16.0); WHITE BLOOD CELLS 14.3 10/3/uL (4.5-10.5)
[2016-06-24 06:31] LABS: MANUAL DIFF NO %; PLATELET COUNT 126 10/3/uL (150-400)
[2016-06-24 06:36] LABS: BUN (BLOOD UREA NITROGEN) 22 MG/DL (6-23); CALCIUM, SERUM 8.1 MG/DL (8.5-10.4); CHLORIDE, SERUM 97 MMOL/L (96-112); CO2 (CARBON DIOXIDE) 28 MMOL/L (24-34); CREATININE 1.01 MG/DL (0.70-1.30); GFR AFRICAN AMERICAN 106 ML/MIN (>=60); GFR NON AFRICAN AMERICAN 91 ML/MIN (>=60); GLUCOSE, SERUM 111 MG/DL (60-99); POTASSIUM, SERUM 3.8 MMOL/L (3.5-5.3); SODIUM, SERUM 135 MMOL/L (135-148)
[2016-06-25 04:41] LABS: BASOPHILS 0.1 %; BASOPHILS ABSOLUTE 0.01 10/3/uL (0.0-0.16); EOSINOPHILS 2.2 %; EOSINOPHILS ABSOLUTE 0.29 10/3/uL (0.0-0.53); HEMATOCRIT 29.5 % (40.0-51.0); HEMOGLOBIN 10.3 g/dL (13.6-17.8); IMMATURE GRANULOCYTES 0.5 %; IMMATURE GRANULOCYTES ABSOLUTE 0.06 10/3/uL (0.0-0.11); LYMPHOCYTES 12.8 %; LYMPHOCYTES ABSOLUTE 1.69 10/3/uL (0.67-4.30); MEAN CORPUS HGB CONC 34.9 g/dL (32.0-36.0); MEAN CORPUSCULAR HEMOGLOB 30.6 pg (26.0-34.0); MEAN CORPUSCULAR VOLUME 87.5 fL (80-100); MEAN PLATELET VOLUME 10.5 fL (9.2-13.0); MONOCYTES 15.2 %; MONOCYTES ABSOLUTE 2.01 10/3/uL (0.21-1.20); NEUTROPHILS 69.2 %; NEUTROPHILS ABSOLUTE 9.17 10/3/uL (2.02-8.40); RBC DISTRIBUTION WIDTH 13.1 % (12.0-16.0); RED CELL COUNT 3.37 10/6/uL (4.7-6.1); WHITE BLOOD CELLS 13.2 10/3/uL (4.5-10.5)
[2016-06-25 04:43] LABS: MANUAL DIFF NO %; PLATELET COUNT 179 10/3/uL (150-400)
[2016-06-25 04:54] LABS: BUN (BLOOD UREA NITROGEN) 19 MG/DL (6-23); CALCIUM, SERUM 7.8 MG/DL (8.5-10.4); CHLORIDE, SERUM 98 MMOL/L (96-112); CO2 (CARBON DIOXIDE) 27 MMOL/L (24-34); CREATININE 0.87 MG/DL (0.70-1.30); GFR AFRICAN AMERICAN 123 ML/MIN (>=60); GFR NON AFRICAN AMERICAN 106 ML/MIN (>=60); GLUCOSE, SERUM 121 MG/DL (60-99); POTASSIUM, SERUM 3.5 MMOL/L (3.5-5.3); SODIUM, SERUM 135 MMOL/L (135-148)
[2016-06-28 04:40] LABS: BASOPHILS 0.1 %; BASOPHILS ABSOLUTE 0.01 10/3/uL (0.0-0.16); EOSINOPHILS 2.8 %; EOSINOPHILS ABSOLUTE 0.31 10/3/uL (0.0-0.53); HEMATOCRIT 28.4 % (40.0-51.0); HEMOGLOBIN 9.7 g/dL (13.6-17.8); IMMATURE GRANULOCYTES 1.3 %; IMMATURE GRANULOCYTES ABSOLUTE 0.14 10/3/uL (0.0-0.11); LYMPHOCYTES 15.2 %; MEAN CORPUS HGB CONC 34.2 g/dL (32.0-36.0); MEAN CORPUSCULAR HEMOGLOB 30.1 pg (26.0-34.0); MEAN CORPUSCULAR VOLUME 88.2 fL (80-100); MEAN PLATELET VOLUME 9.9 fL (9.2-13.0); MONOCYTES 10.5 %; MONOCYTES ABSOLUTE 1.17 10/3/uL (0.21-1.20); NEUTROPHILS 70.1 %; NEUTROPHILS ABSOLUTE 7.83 10/3/uL (2.02-8.40); RBC DISTRIBUTION WIDTH 13.4 % (12.0-16.0); RED CELL COUNT 3.22 10/6/uL (4.7-6.1); WHITE BLOOD CELLS 11.2 10/3/uL (4.5-10.5)
[2016-06-28 04:48] LABS: MANUAL DIFF NO %; PLATELET COUNT 315 10/3/uL (150-400)
[2016-06-28 04:54] LABS: CALCIUM, SERUM 8.1 MG/DL (8.5-10.4); CHLORIDE, SERUM 96 MMOL/L (96-112); CO2 (CARBON DIOXIDE) 29 MMOL/L (24-34); CREATININE 0.87 MG/DL (0.70-1.30); GFR AFRICAN AMERICAN 123 ML/MIN (>=60); GFR NON AFRICAN AMERICAN 106 ML/MIN (>=60); GLUCOSE, SERUM 102 MG/DL (60-99); POTASSIUM, SERUM 3.5 MMOL/L (3.5-5.3); SODIUM, SERUM 135 MMOL/L (135-148)
[2016-06-28 04:56] LABS: BUN (BLOOD UREA NITROGEN) 13 MG/DL (6-23)
[2016-06-28 22:23] LABS: BE (BASE EXCESS) -3.3 MEQ/L (0 +/- 2.5); CARBOXYHEMOGLOBIN 0.3 % (0-3); HCO3 (ACTUAL BICARBONATE) 21.7 MEQ/L (23-27); HEMOBLOGIN CONTENT 10.2 G/DL (14-18); INSTRUMENT SERIAL # 11843; METHEMOGLOBIN 0.8 % (0-3); MODE SIMV; O2 CONTENT 14.7 VOL% (18-24); OPERATOR ID 13744; PCO2 (CO2 TENSION) 39 MMHG (35-45); PO2 (O2 TENSION) 273 MMHG (79-93); SAMPLE Arterial; TIDAL VOLUME 700 ML; pH 7.37 (7.37-7.43)
[2016-06-28 22:35] LABS: HEMATOCRIT 28.4 % (40.0-51.0); HEMOGLOBIN 9.3 g/dL (13.6-17.8); MEAN CORPUS HGB CONC 32.7 g/dL (32.0-36.0); MEAN CORPUSCULAR HEMOGLOB 28.8 pg (26.0-34.0); MEAN CORPUSCULAR VOLUME 87.9 fL (80-100); MEAN PLATELET VOLUME 10.1 fL (9.2-13.0); RBC DISTRIBUTION WIDTH 13.6 % (12.0-16.0); RED CELL COUNT 3.23 10/6/uL (4.7-6.1)
[2016-06-28 22:36] LABS: MANUAL DIFF YES %; PLATELET COUNT 216 10/3/uL (150-400)
[2016-06-28 22:44] LABS: INTERNATIONAL NORMAL RATI 1.8 UNITS (-); PARTIAL THROMBO TIME 43.1 SEC (22.5-37.2)
[2016-06-28 22:45] LABS: PROTIME (NOT ORD) 20.4 SEC (12.0-14.5)
[2016-06-28 22:55] LABS: BAND NEUTROPHILS 12 %; IMMATURE GRANS ABSOLUTE (CALC) 0.23 10/3/uL (0.0-0.11); LYMPHOCYTES 6 %; LYMPHOCYTES ABSOLUTE (CALC) 1.38 10/3/uL (0.67-4.30); METAMYELOCYTES 1 %; MONOCYTES 1 %; MONOCYTES ABSOLUTE (CALC) 0.23 10/3/uL (0.21-1.20); NEUTROPHILS ABSOLUTE (CALC) 21.16 10/3/uL (2.02-8.40); SEGMENTED NEUTROPHIL (0) 80 %; TOTAL NUCLEATED CELLS 100; TOXIC GRANULATION 1+
[2016-06-28 22:56] LABS: PLATELET ESTIMATE ADQ (ADEQUATE); POIKILOCYTOSIS 1+ (5-10/OIF) (0-5/OIF)
[2016-06-28 22:58] LABS: BUN (BLOOD UREA NITROGEN) 16 MG/DL (6-23); CALCIUM, SERUM 7.4 MG/DL (8.5-10.4); CHLORIDE, SERUM 105 MMOL/L (96-112); CREATININE 0.96 MG/DL (0.70-1.30); GFR AFRICAN AMERICAN 113 ML/MIN (>=60); GFR NON AFRICAN AMERICAN 97 ML/MIN (>=60); GLUCOSE, SERUM 100 MG/DL (60-99); PHOSPHORUS, SERUM 3.7 MG/DL (2.5-4.5); POTASSIUM, SERUM 3.9 MMOL/L (3.5-5.3); SODIUM, SERUM 141 MMOL/L (135-148)
[2016-06-28 22:59] LABS: CO2 (CARBON DIOXIDE) 24 MMOL/L (24-34)
[2016-06-29 01:48] LABS: BE (BASE EXCESS) -5.9 MEQ/L (0 +/- 2.5); CARBOXYHEMOGLOBIN 0.2 % (0-3); HCO3 (ACTUAL BICARBONATE) 19.1 MEQ/L (23-27); INSTRUMENT SERIAL # 11843; METHEMOGLOBIN 0.6 % (0-3); OPERATOR ID 13744; PCO2 (CO2 TENSION) 35 MMHG (35-45); PO2 (O2 TENSION) 150 MMHG (79-93); SAMPLE Arterial; pH 7.35 (7.37-7.43)
[2016-06-29 01:49] LABS: DEVICE NC
[2016-06-29 04:21] LABS: BASOPHILS 0.1 %; BASOPHILS ABSOLUTE 0.01 10/3/uL (0.0-0.16); EOSINOPHILS 0 %; HEMATOCRIT 27.7 % (40.0-51.0); HEMOGLOBIN 9.4 g/dL (13.6-17.8); IMMATURE GRANULOCYTES 0.7 %; IMMATURE GRANULOCYTES ABSOLUTE 0.11 10/3/uL (0.0-0.11); LYMPHOCYTES 3.7 %; MEAN CORPUS HGB CONC 33.9 g/dL (32.0-36.0); MEAN CORPUSCULAR HEMOGLOB 30.2 pg (26.0-34.0); MEAN CORPUSCULAR VOLUME 89.1 fL (80-100); MEAN PLATELET VOLUME 9.9 fL (9.2-13.0); MONOCYTES 3.7 %; NEUTROPHILS 91.8 %; NEUTROPHILS ABSOLUTE 14.82 10/3/uL (2.02-8.40); PLATELET COUNT 195 10/3/uL (150-400); RBC DISTRIBUTION WIDTH 13.4 % (12.0-16.0); RED CELL COUNT 3.11 10/6/uL (4.7-6.1); WHITE BLOOD CELLS 16.1 10/3/uL (4.5-10.5)
[2016-06-29 04:24] LABS: MANUAL DIFF NO %
[2016-06-29 04:26] LABS: INTERNATIONAL NORMAL RATI 1.6 UNITS (-); PROTIME (NOT ORD) 19.1 SEC (12.0-14.5)
[2016-06-29 04:30] LABS: BUN (BLOOD UREA NITROGEN) 19 MG/DL (6-23); CHLORIDE, SERUM 109 MMOL/L (96-112); CO2 (CARBON DIOXIDE) 21 MMOL/L (24-34); CREATININE 0.87 MG/DL (0.70-1.30); GFR AFRICAN AMERICAN 123 ML/MIN (>=60); GFR NON AFRICAN AMERICAN 106 ML/MIN (>=60); GLUCOSE, SERUM 122 MG/DL (60-99); POTASSIUM, SERUM 5.1 MMOL/L (3.5-5.3); SODIUM, SERUM 141 MMOL/L (135-148)
[2016-06-29 16:49] LABS: HEMATOCRIT 27.2 % (40.0-51.0); HEMOGLOBIN 9.3 g/dL (13.6-17.8)
[2016-06-30 04:46] LABS: BASOPHILS 0.1 %; BASOPHILS ABSOLUTE 0.01 10/3/uL (0.0-0.16); EOSINOPHILS 0.3 %; EOSINOPHILS ABSOLUTE 0.05 10/3/uL (0.0-0.53); HEMATOCRIT 25.3 % (40.0-51.0); HEMOGLOBIN 8.5 g/dL (13.6-17.8); IMMATURE GRANULOCYTES 0.2 %; IMMATURE GRANULOCYTES ABSOLUTE 0.03 10/3/uL (0.0-0.11); LYMPHOCYTES 12.7 %; LYMPHOCYTES ABSOLUTE 2.25 10/3/uL (0.67-4.30); MEAN CORPUS HGB CONC 33.6 g/dL (32.0-36.0); MEAN PLATELET VOLUME 9.8 fL (9.2-13.0); MONOCYTES 8.7 %; MONOCYTES ABSOLUTE 1.55 10/3/uL (0.21-1.20); NEUTROPHILS ABSOLUTE 13.83 10/3/uL (2.02-8.40); RBC DISTRIBUTION WIDTH 14.1 % (12.0-16.0); RED CELL COUNT 2.93 10/6/uL (4.7-6.1); WHITE BLOOD CELLS 17.7 10/3/uL (4.5-10.5)
[2016-06-30 04:49] LABS: BUN (BLOOD UREA NITROGEN) 20 MG/DL (6-23); CHLORIDE, SERUM 105 MMOL/L (96-112); CO2 (CARBON DIOXIDE) 23 MMOL/L (24-34); CREATININE 0.65 MG/DL (0.70-1.30); GFR AFRICAN AMERICAN 139 ML/MIN (>=60); GFR NON AFRICAN AMERICAN 120 ML/MIN (>=60); GLUCOSE, SERUM 103 MG/DL (60-99); POTASSIUM, SERUM 4.1 MMOL/L (3.5-5.3); SGOT(AST) 41 U/L (5-40); SGPT(ALT) 37 U/L (5-65); SODIUM, SERUM 138 MMOL/L (135-148); TOTAL BILIRUBIN 0.5 MG/DL (0-1.2)
[2016-06-30 04:50] LABS: ALBUMIN 2.5 G/DL (3.5-5.0); ALKALINE PHOSPHATASE 62 U/L (45-117); GLOBULIN 2.5 G/DL (2.5-4.1)
[2016-06-30 04:55] LABS: INTERNATIONAL NORMAL RATI 1.4 UNITS (-); MEAN CORPUSCULAR VOLUME 86.3 fL (80-100); PLATELET COUNT 276 10/3/uL (150-400); PROTIME (NOT ORD) 17.2 SEC (12.0-14.5)
[2016-06-30 04:56] LABS: MANUAL DIFF NO %
[2016-07-01 07:45] LABS: BASOPHILS 0.1 %; BASOPHILS ABSOLUTE 0.01 10/3/uL (0.0-0.16); EOSINOPHILS 1.4 %; EOSINOPHILS ABSOLUTE 0.16 10/3/uL (0.0-0.53); HEMATOCRIT 23.9 % (40.0-51.0); HEMOGLOBIN 8.2 g/dL (13.6-17.8); IMMATURE GRANULOCYTES 0.2 %; IMMATURE GRANULOCYTES ABSOLUTE 0.02 10/3/uL (0.0-0.11); LYMPHOCYTES ABSOLUTE 1.49 10/3/uL (0.67-4.30); MEAN CORPUS HGB CONC 34.3 g/dL (32.0-36.0); MEAN CORPUSCULAR HEMOGLOB 30.1 pg (26.0-34.0); MEAN CORPUSCULAR VOLUME 87.9 fL (80-100); NEUTROPHILS 78.3 %; NEUTROPHILS ABSOLUTE 8.97 10/3/uL (2.02-8.40); PLATELET COUNT 249 10/3/uL (150-400); RBC DISTRIBUTION WIDTH 14.1 % (12.0-16.0); RED CELL COUNT 2.72 10/6/uL (4.7-6.1); WHITE BLOOD CELLS 11.5 10/3/uL (4.5-10.5)
[2016-07-01 07:46] LABS: MANUAL DIFF NO %; NUCLEATED RED BLOOD CELLS 3 /100WBC (0)
[2016-07-01 07:57] LABS: BUN (BLOOD UREA NITROGEN) 16 MG/DL (6-23); CALCIUM, SERUM 7.8 MG/DL (8.5-10.4); CHLORIDE, SERUM 104 MMOL/L (96-112); CO2 (CARBON DIOXIDE) 25 MMOL/L (24-34); CREATININE 0.84 MG/DL (0.70-1.30); GFR AFRICAN AMERICAN 125 ML/MIN (>=60); GFR NON AFRICAN AMERICAN 108 ML/MIN (>=60); GLUCOSE, SERUM 130 MG/DL (60-99); POTASSIUM, SERUM 4.3 MMOL/L (3.5-5.3); SODIUM, SERUM 139 MMOL/L (135-148)
[2016-07-02 07:42] LABS: BASOPHILS 0.2 %; BASOPHILS ABSOLUTE 0.02 10/3/uL (0.0-0.16); EOSINOPHILS 1.3 %; EOSINOPHILS ABSOLUTE 0.15 10/3/uL (0.0-0.53); HEMOGLOBIN 8.8 g/dL (13.6-17.8); IMMATURE GRANULOCYTES 0.3 %; IMMATURE GRANULOCYTES ABSOLUTE 0.03 10/3/uL (0.0-0.11); LYMPHOCYTES 15.1 %; LYMPHOCYTES ABSOLUTE 1.68 10/3/uL (0.67-4.30); MEAN CORPUS HGB CONC 33.3 g/dL (32.0-36.0); MEAN CORPUSCULAR HEMOGLOB 29.2 pg (26.0-34.0); MEAN CORPUSCULAR VOLUME 87.7 fL (80-100); MEAN PLATELET VOLUME 9.8 fL (9.2-13.0); MONOCYTES 5.6 %; MONOCYTES ABSOLUTE 0.62 10/3/uL (0.21-1.20); NEUTROPHILS 77.5 %; NEUTROPHILS ABSOLUTE 8.65 10/3/uL (2.02-8.40); RBC DISTRIBUTION WIDTH 14.2 % (12.0-16.0); RED CELL COUNT 3.01 10/6/uL (4.7-6.1); WHITE BLOOD CELLS 11.2 10/3/uL (4.5-10.5)
[2016-07-02 07:44] LABS: HEMATOCRIT 26.4 % (40.0-51.0); PLATELET COUNT 336 10/3/uL (150-400)
[2016-07-02 07:45] LABS: MANUAL DIFF NO %
[2016-07-03 04:46] LABS: BASOPHILS 0.1 %; BASOPHILS ABSOLUTE 0.01 10/3/uL (0.0-0.16); EOSINOPHILS 2.2 %; EOSINOPHILS ABSOLUTE 0.24 10/3/uL (0.0-0.53); HEMATOCRIT 24.7 % (40.0-51.0); HEMOGLOBIN 8.2 g/dL (13.6-17.8); IMMATURE GRANULOCYTES 0.3 %; IMMATURE GRANULOCYTES ABSOLUTE 0.03 10/3/uL (0.0-0.11); LYMPHOCYTES ABSOLUTE 1.74 10/3/uL (0.67-4.30); MEAN CORPUS HGB CONC 33.2 g/dL (32.0-36.0); MEAN CORPUSCULAR HEMOGLOB 28.9 pg (26.0-34.0); MEAN PLATELET VOLUME 9.7 fL (9.2-13.0); MONOCYTES 8.5 %; MONOCYTES ABSOLUTE 0.93 10/3/uL (0.21-1.20); NEUTROPHILS 72.9 %; NEUTROPHILS ABSOLUTE 7.95 10/3/uL (2.02-8.40); PLATELET COUNT 374 10/3/uL (150-400); RBC DISTRIBUTION WIDTH 14.1 % (12.0-16.0); RED CELL COUNT 2.84 10/6/uL (4.7-6.1); WHITE BLOOD CELLS 10.9 10/3/uL (4.5-10.5)
[2016-07-03 04:52] LABS: MANUAL DIFF NO %
[2016-07-03 05:02] LABS: BUN (BLOOD UREA NITROGEN) 13 MG/DL (6-23); CALCIUM, SERUM 8.2 MG/DL (8.5-10.4); CHLORIDE, SERUM 107 MMOL/L (96-112); CO2 (CARBON DIOXIDE) 25 MMOL/L (24-34); CREATININE 0.79 MG/DL (0.70-1.30); GFR AFRICAN AMERICAN 128 ML/MIN (>=60); GFR NON AFRICAN AMERICAN 111 ML/MIN (>=60); GLUCOSE, SERUM 105 MG/DL (60-99); POTASSIUM, SERUM 4.2 MMOL/L (3.5-5.3); SODIUM, SERUM 141 MMOL/L (135-148)
[2016-07-03] MEDS ORDERED: ASAB PO (09:06)
[2017-01-10] MEDS ORDERED: KEPPRA1000 MG PO ×2 (16:36)
[2017-01-10] MEDS ORDERED: PHENOBARB64.8 MG PO (16:37)
[2017-01-10] MEDS ORDERED: MELATONIN5 M1 PO (16:37)
[2017-01-10] MEDS ORDERED: LIPITOR40 PO (16:37)
[2017-01-10] MEDS ORDERED: KLONO1 PO (16:37)
[2017-01-10] MEDS ORDERED: ASAB PO (16:38)
== END 2016-07-03 10:27 | disposition home or self-care (01) | DRG 219 ==
LOC: SDC/OF 07:12 → CVICU 15:24 → 5NO 06-22 15:10 → CVICU 06-22 15:38 → 5NO 06-22 15:39 → SDC/OF 06-28 13:59 → CVICU 06-28 19:38 → 5NO 06-30 10:54
PROVIDERS: Internal Medicine Cardiovascular Disease; Thoracic Surgery (Cardiothoracic Vascular Surgery)
PROC: 5A1221Z Performance of Cardiac Output, Continuous (ICD-10-PCS; 2016-06-20)
PROC: [UNRECOGNIZED PROCEDURE] (2016-06-20)
PROC: 02L70ZK Occlusion of Left Atrial Appendage, Open Approach (ICD-10-PCS; 2016-06-20)
PROC: 30233K1 Transfusion of Nonautologous Frozen Plasma into Peripheral Vein, Percutaneous Approach (ICD-10-PCS; 2016-06-20)
PROC: 02RF08Z Replacement of Aortic Valve with Zooplastic Tissue, Open Approach (ICD-10-PCS; principal; 2016-06-20 12:45)
PROC: 02RG08Z Replacement of Mitral Valve with Zooplastic Tissue, Open Approach (ICD-10-PCS; 2016-06-20 12:45)
PROC: 02UG0JZ Supplement Mitral Valve with Synthetic Substitute, Open Approach (ICD-10-PCS; 2016-06-20 12:45)
PROC: B246ZZ4 Ultrasonography of Right and Left Heart, Transesophageal (ICD-10-PCS; 2016-06-20 12:45)
PROC: 02RX0JZ Replacement of Thoracic Aorta, Ascending/Arch with Synthetic Substitute, Open Approach (ICD-10-PCS; 2016-06-28)
PROC: 5A1221Z Performance of Cardiac Output, Continuous (ICD-10-PCS; 2016-06-28)
PROC: B246ZZ4 Ultrasonography of Right and Left Heart, Transesophageal (ICD-10-PCS; 2016-06-28)
DX: I35.0 Nonrheumatic aortic (valve) stenosis (principal); I51.1 Rupture of chordae tendineae, not elsewhere classified; J90 Pleural effusion, not elsewhere classified; J98.11 Atelectasis; I27.2 Other secondary pulmonary hypertension; G80.9 Cerebral palsy, unspecified; G40.909 Epilepsy, unspecified, not intractable, without status epilepticus; E78.5 Hyperlipidemia, unspecified; E66.9 Obesity, unspecified; Z68.28 Body mass index [BMI] 28.0-28.9, adult; I34.0 Nonrheumatic mitral (valve) insufficiency; I71.2 Thoracic aortic aneurysm, without rupture
CPT/HCPCS: 31720; 36415; 71010; 71020; 76376; 80048; 80053; 81001; 82330; 82803; 82805; 82947; 82962; 83036; 83540; 83550; 83735; 84100; 84132; 84295; 85014; 85018; 85025; 85049; 85347; 85610; 85730; 86850; 86900; 86901; 86920; 86965; 87641; 88300; 88304; 88305; 93005; 93303; 93312; 93320; 93325; 94002; 94640; 94660; 94770; 97116-GP; 97161-GP; 97164-GP; 97165-GO; 97168-GO; A9270-GY; C1713; C1751; C1768; C1769; C1781; C1894; G8978-CK-GP; G8979-CI-GP; G8979-CK-GP; G8980-CJ-GP; G8987-CJ-GO; G8987-CK-GO; G8988-CJ-GO; G8989-CJ-GO; J0690; J1644; J1953; J2150; J2250; J2260; J2370; J2405; J2440; J2597; J2720; J2765; J2795; J2930; J3010; J3370; J3475; J3480; P9012; P9016; P9045; P9047; P9059